=== PATIENT | male | born 1990 | race Caucasian/White ===

== ENCOUNTER 2018-11-27 23:50 | Emergency (ER) | payer SELFPAY ==
[~2018-11-27] VITALS: Ht 165.1 cm; Wt 90.7 kg
[2018-11-28 00:17] VITALS: Ht 165.1 cm; Wt 90.7 kg
[2018-11-28 01:47] VITALS: BP 136/85
== END 2018-11-28 01:47 | disposition home or self-care (01) ==
LOC: ED 23:50
DX: S62.102A Fracture of unspecified carpal bone, left wrist, initial encounter for closed fracture (principal); S60.222A Contusion of left hand, initial encounter; W18.30XA Fall on same level, unspecified, initial encounter; Y93.89 Activity, other specified; Y92.89 Other specified places as the place of occurrence of the external cause; Y99.8 Other external cause status